=== PATIENT | male | born 1960 | race Caucasian/White ===

== ENCOUNTER 2022-06-12 04:31 | Emergency (ER) | payer SELFPAY ==
[~2022-06-12] VITALS: Ht 177.8 cm; Wt 114.0 kg
[2022-06-12 05:20] VITALS: BP 170/129
== END 2022-06-12 05:31 | disposition home or self-care (01) ==
LOC: ER 04:45
DX: R04.0 Epistaxis (principal); Z88.4 Allergy status to anesthetic agent
CPT/HCPCS: 99281